=== PATIENT | female | born 1960 | race Caucasian/White ===

== ENCOUNTER 2019-01-15 10:33 | Emergency (ER) | payer OTHER ==
[~2019-01-15] VITALS: Ht 157.5 cm; Wt 79.4 kg
[2019-01-15] MEDS ORDERED: IPRATROPIUM BROMIDE 0.02% 2.5 ML NEB NEB STA (10:59)
[2019-01-15] MEDS ORDERED: ALBUTEROL SULF 0.083% NEB SOLN 3 ML NEB NEB STA (10:59)
[2019-01-15] MEDS ORDERED: DEXAMETHASONE SOD PHOS 10 MG/1 ML VIAL IM ONE (11:00)
[2019-01-15] MEDS ORDERED: ACETAMINOPHEN/CODEINE ELIX 120-12 MG/5 ML UDC NG ONE (11:00)
[2019-01-15] MEDS ORDERED: LEVALBUTEROL HCL SOLN NEBU 1.25 MG/3 ML NEB INH NR (11:15)
[2019-01-15] MEDS ORDERED: BENZONATATE 100 MG CAP PO NR (11:15)
[2019-01-15] MEDS ORDERED: DEXAMETHASONE SOD PHOS 10 MG/1 ML VIAL IM NR (11:15)
[2019-01-15] MEDS ORDERED: LEVALBUTEROL HCL SOLN NEBU 1.25 MG/3 ML NEB INH ONE (11:15)
--- NOTE | 2019-01-15 11:40 | Diagnostic Imaging Report ---
EXAMINATION: CHEST 2 VIEWS INDICATION: Fever, cough, runny nose ^ORDER PLACED BY ^[id number] ^1118 ^Y COMPARISON: None FINDINGS: PA and lateral views TUBES and LINES: None. LUNGS: Diffuse hyperinflation consistent with COPD. Small focus of right upper lobe perihilar airspace opacity, either atelectasis or developing pneumonia. Pulmonary vascular markings are normal. PLEURA: No pleural effusion or pneumothorax. HEART AND MEDIASTINUM: The heart is mildly enlarged. BONES AND SOFT TISSUES: Single median sternotomy wire is intact. No focal osseous lesions. Soft tissues are unremarkable. UPPER ABDOMEN: Unremarkable. IMPRESSION: Right perihilar airspace opacity, either atelectasis or developing pneumonia. Pulmonary hyperinflation consistent with COPD. Signed by: Dr. Natalee Britton MD on 01/15/2019 11:37 AM
--- NOTE | 2019-01-15 11:54 | NUR ---
Andrew CALLED FOR [facility] [place]. FAMILY AT SIDE
== END 2019-01-15 12:55 | disposition home or self-care (01) ==
LOC: ER 10:33
DX: R50.9 Fever, unspecified (principal); R05 Cough; J20.9 Acute bronchitis, unspecified
CPT/HCPCS: 71046; 99284; J1100

== ENCOUNTER 2019-01-25 09:56 | Emergency (ER) | payer OTHER ==
[~2019-01-25] VITALS: Ht 157.5 cm; Wt 79.4 kg
[2019-01-25] MEDS ORDERED: SODIUM CHLORIDE 0.9% 1000ML 1,000 ML IV STA (10:27)
[2019-01-25] MEDS ORDERED: AZITHROMYCIN 500MG/NS 250 ML 250 ML IV STA (10:27)
[2019-01-25] MEDS ORDERED: ALBUTEROL SULF 0.083% NEB SOLN 3 ML NEB NEB STA (10:27)
[2019-01-25] MEDS ORDERED: IPRATROPIUM BROMIDE 0.02% 2.5 ML NEB NEB STA (10:27)
[2019-01-25] MEDS ORDERED: METHYLPREDNISOLONE SOD SUCC 125 MG/2ML VIAL IV STA (10:27)
[2019-01-25] MEDS ORDERED: CEFTRIAXONE SOD 1 GM/NS 50 ML 50 ML IV STA (10:27)
[2019-01-25] MEDS ORDERED: PREDNISONE 20 MG TAB PO ONE (10:30)
[2019-01-25 11:42] LABS: BASOPHILS # (AUTO) 0.1 (0.0-0.1); BASOPHILS % 0.4 % (0.0-1.0); EOSINOPHILS # (AUTO) 0.4 (0.0-0.4); HEMATOCRIT 42.5 % (34.2-44.1); HEMOGLOBIN 14.2 g/dL (12.0-16.0); LYMPHOCYTES # (AUTO) 2.8 (1.0-3.2); LYMPHOCYTES % 19.9 % (18.0-39.1); MEAN CORPUSCULAR HEMOGLOBIN 31.8 pg (28-32); MEAN CORPUSCULAR HGB CONC 33.4 g/dL (31-35); MEAN CORPUSCULAR VOLUME 95.3 fL (81-99); MONOCYTES # (AUTO) 1.8 (0.2-0.8); MONOCYTES % 12.4 % (4.4-11.3); NEUTROPHILS % 63.7 % (38.7-80.0); PLATELET COUNT 356 x10e3/uL (140-360); RED BLOOD COUNT 4.46 x10e6/uL (3.6-5.1); RED CELL DISTRIBUTION WIDTH 12.5 % (11.7-14.4)
[2019-01-25 12:04] LABS: ALANINE AMINOTRANSFERASE 10 IU/L (0-55); ALBUMIN 3.3 g/dL (3.5-5.0); ALBUMIN/GLOBULIN RATIO 0.9 (0.8-2.0); ALKALINE PHOSPHATASE 85 IU/L (40-150); ANION GAP 14.2 mmol/L (8-16); BLOOD UREA NITROGEN 11 mg/dL (7-26); BUN/CREATININE RATIO 14 (6-25); CALCIUM 9.2 mg/dL (8.4-10.2); CARBON DIOXIDE 25 mmol/L (22-29); CHLORIDE 102 mmol/L (98-107); CREATINE KINASE 49 IU/L (29-168); CREATININE, SERUM 0.78 mg/dL (0.57-1.11); EST GLOMERULAR FILTRATION RATE > 60 ML/MIN (60-); GLUCOSE 81 mg/dL (74-118); MAGNESIUM 2.3 MG/DL (1.3-2.1); POTASSIUM 4.2 mmol/L (3.5-5.1); SODIUM 137 mmol/L (136-145)
[2019-01-25 12:16] LABS: COLOR,URINE YELLOW (YELLOW)
[2019-01-25 12:17] LABS: BILIRUBIN,URINE NEGATIVE (NEGATIVE); CLARITY,URINE HAZY (CLEAR); KETONES,URINE NEGATIVE (NEGATIVE); LEUKOCYTE ESTERASE ,URINE NEGATIVE (NEGATIVE); NITRITE,URINE NEGATIVE (NEGATIVE); PROTEIN,URINE DIPSTICK NEGATIVE (NEGATIVE); URINE UROBILINOGEN 0.2 mg/dL (0.2 - 1)
[2019-01-25 12:30] LABS: BACTERIA,URINE MODERATE /HPF; EPITHELIAL CELLS,URINE MODERATE /LPF; RBC,URINE 0-5 /HPF (0-5); WBC,URINE (MAN) 0-5 /HPF (0-5)
[2019-01-25 12:31] LABS: MUCUS,URINE FEW (RARE)
--- NOTE | 2019-01-25 12:53 | Diagnostic Imaging Report ---
EXAM: CHEST 2 VIEWS DATE: 01/25/2019 10:27 AM INDICATION: Bronchitis, shortness of breath COMPARISON: 01/15/2019 FINDINGS: The trachea is midline. There are bibasilar opacities which may reflect atelectasis/scarring. There is no evidence for large focal consolidation, pneumothorax, or significant pleural effusion. The cardiomediastinal silhouette is stable in appearance. No acute osseous abnormalities identified. IMPRESSION: Mildly increased bibasilar opacities suggestive of atelectasis. Signed by: Dr. Gallo Robles MD on 01/25/2019 12:49 PM
[2019-01-25 14:32] VITALS: BP 111/65
--- OUTSIDE RECORDS SUMMARY | 2019-02-04 10:27 | XMS REPORT ---
Author Author [facility] Address Unknown Phone Unavailable Care Team Providers Care Cigarette Roller Name Role Phone MADIE BENITEZ Unavailable Unavailable CHRISTIAN ENRIQUEZ Unavailable Unavailable Payers Payer Name Policy Type Policy Number Effective Date Expiration Date Problems This patient has no known problems. Allergies, Adverse Reactions, Alerts Allergy Name Allergy Type Status Severity Reaction(s) Onset Date Inactive Date Treating Clinician Comments grey BURROWS Active MO 2018-04-01 00:00:00 Medications This patient has no known medications. Results Test Description Test Time Test Comments Text Results Atomic Results Result Comments CHEST 2 VIEWS 2019-01-25 12:48:00 [place] [address] Patient Name: QING DAN MR #: [id number] : 1960 Age/Sex: 58/F Req #: [id number] Adm Physician: Ordered by: EMMANUEL VALDIVIA, MADIE VALDIVIA Report #: [id number] Location: ER Room/Bed: Procedure: [id number] DX/CHEST 2 VIEWS Exam Date: Exam Time: REPORT STATUS: Signed EXAM: CHEST 2 VIEWS DATE: 01/25/2019 10:27 AM INDICATION: B kayleightis, shortness of breath COMPARISON: 01/15/2019 FINDINGS: The trachea is midline. There are bibasilar opacities which may reflect atelectasis/scarring. There is no evidence for large focal consolidation, pneumothorax, or significant pleural effusion. The cardiomediastinal silhouette is stable in appearance. No acute osseous abnormalities identified. IMPRESSION: Mildly increased bibasilar opacities suggestive of atelectasis. Signed by: Dr. Gallo Robles MD on 01/25/2019 12:49 PM Dictated By: GALLO ROBLES MD 124 Transcribed By: AURORA on 01/25/19 124 COPY TO: MADIE BENITEZ CHEST 2 VIEWS 2019-01-15 11:35:00 [place] [address] Patient Name: QING DAN MR #: [id number] : 1960 Age/Sex: 58/F Req #: [id number] Adm Physician: Ordered by: CHRISS DC NP Report #: [id number] Location: ER Room/Bed: Procedure: [id number] DX/CHEST 2 VIEWS Exam Date: 01/15/19 Exam Time: 1118 REPORT STATUS: Signed EXAMINATION: CHEST 2 VIEWS INDICATION: Fever, cough, runny nose ORDER PLACED BY [id number] Y COMPARISON: None FINDINGS: PA and lateral views TUBES and LINES: None. LUNGS: Diffuse hyperinflation consistent with COPD. Small focus of right upper lobe perihilar airspace opacity, either atelectasis or developing pneumonia. Pulmonary vascular markings are normal. PLEURA: No pleural effusion or pneumothorax. HEART AND MEDIASTINUM: The heart is mildly enlarged. BONES AND SOFT TISSUES: Single median sternotomy wire is intact. No focal osseous lesions. Soft tissues are unremarkable. UPPER ABDOMEN: Unremarkable. IMPRESSION: Right perihilar airspace opacity, either atelectasis or developing pneumonia. Pulmonary hyperinflation consistent with COPD. Signed by: Dr. Ade cMlean MD on 01/15/2019 11:37 AM Dictated By: ADE MCLEAN MD 113 Transcribed By: AURORA on 01/15/19 1137 COPY TO: CHRISS DC NP HGBA1C 2018-04-02 21:08:00 GLYCOSYLATED HEMOGLOBIN (HA1C) (test code=GLYHGB) 5.5 % HbA1 4.8-6.0 ESTIMATED AVERAGE GLUCOSE (test code=EAG) 111 MG/DL [id number] 20:40:00* Test Item Value Reference Range Comments TROPONIN-I (test code=TROPI) <0.015 ng/mL 0-0.045 PATIENT REFUSED NOTIFIED UMANG CANNON 04/02/18 0837COMMENTS TO MIXING PLANT OPERATOR : COLLECT 3 HOURS AFTER PREVIOUS SAMPLELIPID PROFILE (CORONARY RISK)2018-04-02 20:40:00* Test Item Value Reference Range Comments TRIGLYCERIDES (test code=TRIG) 73 mg/dL 20-150 CHOLESTEROL (test code=CHOL) 81 mg/dL 0-200 CHOLESTEROL/HDL RATIO (test code=CHOLHDL) 2.0 RATIO 0-4.9 RISK ASSOCIATED WITH CHOL/HDL RATIOS: Risk Male Female1/2 AVERAGE 3.43 3.27AVERAGE 4.97 4.442X AVERAGE 9.55 7.053X AVERAGE 23.39 11.04 REFERENCE VALUE IS RELATED TO RISK LEVELS ASRECOMMENDED BY THE [facility]. HEART, LUNG, AND BLOOD INST. HDL CHOLESTEROL (test code=HDL) 35 mg/dL 40-60 LIPOPROTEIN LDL (test code=LDL) 50 mg/dL 100-129 Reference Interval: mg/dL mmol/L Optimal <100 <2.6Near/above optimal 100-129 2.6- 3.3Borderline High 130-159 3.4-4.1High 160-189 4.1-4.9Very High >=190 >=4.9=========This LDL result is a direct measurement.========= THYROID STIMULATING [id number] 20:40:00* Test Item Value Reference Range Comments THYROID STIMULATING HORMONE (test code=TSH) 0.916 uIU/mL 0.36-3.74 TSH REFERENCE RANGES: EUTHYROID: 0.35 - 4.3 mIU/mL HYPO : > 5.5 mIU/mL HYPER : < 0.35 mIU/mL [id number] 04:58:00* Test Item Value Reference Range Comments TROPONIN-I (test code=TROPI) <0.015 ng/mL 0-0.045 COMMENTS TO MIXING PLANT OPERATOR: COLLECT 3 HOURS AFTER PREVIOUS SAMPLEURINALYSIS [id number] 23:36:00* Test Item Value Reference Range Comments UA COLOR (test code=COLU) YELLOW YELLOW UA APPEARANCE (test code=APPU) SLIGHTLY CLOUDY CLEAR UA GLUCOSE DIPSTICK (test code=DGLUU) NEGATIVE mg/dL NEGATIVE UA BILIRUBIN DIPSTICK (test code=BILU) NEGATIVE mg/dL NEGATIVE UA KETONE DIPSTICK (test code=KETU) 5 (Trace) mg/dL NEGATIVE UA SPECIFIC GRAVITY (test code=SGU) 1.030 1.001-1.035 UA BLOOD DIPSTICK (test code=ANNABELLE) Negative NEGATIVE UA PH DIPSTICK (test code=KASANDRA) 5.0 5.0-8.0 UA PROTEIN DIPSTICK (test code=PROU) Negative mg/dL NEGATIVE UA UROBILINIOGEN DIPSTICK (test code=URO) 0.2 mg/dL 0.0-0.2 UA NITRITE DIPSTICK (test code=ANNETTE) NEGATIVE NEGATIVE UA LEUKOCYTE ESTERASE W REFLEX (test code=LEUUR) NEGATIVE NEGATIVE UA WBC (test code=WBCU) 0-5 #/HPF 0-5 UA RBC (test code=RBCU) 0-2 #/HPF 0-5 UA EPITHELIAL CELLS (test code=EPIU) FEW per HPF FEW UA BACTERIA (test code=BACU) NONE SEEN #/HPF NONE UA HYALINE CAST (test code=HYALU) 0-2 #/LPF 0-5 UA MUCUS (test code=MUCU) MANY #/LPF FEW Urine Source? Clean CatchB-TYPE NATRIURETIC [id number] 20:19:00* Test Item Value Reference Range Comments B-TYPE NATRIURETIC PEPTIDE (test code=BNP) 18.18 pgram/mL 0-100 COMPREHENSIVE METABOLIC [id number] 20:18:00* Test Item Value Reference Range Comments SODIUM (test code=NA) 142 mmol/L 136-145 POTASSIUM (test code=K) 3.8 mmol/L 3.5-5.1 CHLORIDE (test code=CL) 106.0 mmol/L 98-107 CARBON DIOXIDE (test code=CO2) 26.0 mmol/L 21-32 ANION GAP (test code=GAP) 13.8 10-20 GLUCOSE (test code=GLU) 89 mg/dL 74-106 BLOOD UREA NITROGEN (test code=BUN) 10 mg/dL 7-18 GLOMERULAR FILTRATION RATE (test code=GFR) > 60 mL/min >=60 Estimated GFR by using Modified MDRD formula.Chronic kidney disease is defined as either kidney damageor GFR <60 mL/min/1.73 m2 for >3 months. CREATININE (test code=CREAT) 0.70 mg/dL 0.55-1.02 Note change in reference range due to change in reagent. BUN/CREATININE RATIO (test code=BUN/CREA) 14.7 10-20 TOTAL PROTEIN (test code=PROT) 6.8 gram/dL 6.4-8.2 ALBUMIN (test code=ALB) 3.1 g/dL 3.4-5.0 GLOBULIN (test code=GLOB) 3.7 gram/dL 2.7-4.2 ALBUMIN/GLOBULIN RATIO (test code=A/G) 0.8 0.75-1.50 CALCIUM (test code=CA) 8.3 mg/dL 8.5-10.1 BILIRUBIN TOTAL (test code=BILT) 0.10 mg/dL 0.0-1.0 SGOT/AST (test code=AST) 16 IUnit/L 15-37 SGPT/ALT (test code=ALT) 28 IUnit/L 12-78 ALKALINE PHOSPHATASE TOTAL (test code=ALKP) 89 IUnit/L 45-117 Note change in reference range due to change in reagent. [id number] 20:18:00* Test Item Value Reference Range Comments LIPASE (test code=LIP) 205 U/L 73.0-393.0 [id number] 20:18:00* Test Item Value Reference Range Comments CKMB (test code=CKMBT) 1.8 ng/mL 0-6.0 [id number] 20:18:00* Test Item Value Reference Range Comments TROPONIN-I (test code=TROPI) <0.015 ng/mL 0-0.045 HCG SERUM [id number] 20:05:00* Test Item Value Reference Range Comments HCG SERUM QUAL (test code=HCGQL) NEGATIVE NEGATIVE This HCGQL test is NOT applicable for MALE patients.Check with nurse about probable order error.If Tumor Marker Test needed, nurse should order test "HCGTU"(Test #550.39449) COMPREHENSIVE METABOLIC [id number] 20:05:00* Test Item Value Reference Range Comments SODIUM (test code=NA) 142 mmol/L 136-145 POTASSIUM (test code=K) 3.8 mmol/L 3.5-5.1 CHLORIDE (test code=CL) 106.0 mmol/L 98-107 CARBON DIOXIDE (test code=CO2) mmol/L 21-32 ANION GAP (test code=GAP) 10-20 GLUCOSE (test code=GLU) mg/dL 74-106 BLOOD UREA NITROGEN (test code=BUN) mg/dL 7-18 GLOMERULAR FILTRATION RATE (test code=GFR) mL/min >=60 CREATININE (test code=CREAT) mg/dL 0.55-1.02 BUN/CREATININE RATIO (test code=BUN/CREA) 10-20 TOTAL PROTEIN (test code=PROT) gram/dL 6.4-8.2 ALBUMIN (test code=ALB) g/dL 3.4-5.0 GLOBULIN (test code=GLOB) gram/dL 2.7-4.2 ALBUMIN/GLOBULIN RATIO (test code=A/G) 0.75-1.50 CALCIUM (test code=CA) mg/dL 8.5-10.1 BILIRUBIN TOTAL (test code=BILT) mg/dL 0.0-1.0 SGOT/AST (test code=AST) IUnit/L 15-37 SGPT/ALT (test code=ALT) IUnit/L 12-78 ALKALINE PHOSPHATASE TOTAL (test code=ALKP) IUnit/L 45-117 [id number] 20:05:00* Test Item Value Reference Range Comments LIPASE (test code=LIP) U/L 73.0-393.0 [id number] 20:05:00* Test Item Value Reference Range Comments CKMB (test code=CKMBT) ng/mL 0-6.0 [id number] 20:05:00* Test Item Value Reference Range Comments TROPONIN-I (test code=TROPI) ng/mL 0-0.045 CBC W/AUTO [id number] 19:54:00* Test Item Value Reference Range Comments WHITE BLOOD CELL (test code=WBC) K/mm3 4.5-12.5 RED BLOOD CELL (test code=RBC) mill/mm3 3.7-5.2 HEMOGLOBIN (test code=HGB) 13.4 gram/dL 11.5-15.5 HEMATOCRIT (test code=HCT) 41.1 % 36.0-46.0 MEAN CELL VOLUME (test code=MCV) fL 80-98 MEAN CELL HGB (test code=MCH) picogram 27.0-33.0 MEAN CELL HGB CONCETRATION (test code=MCHC) gram/dL 33.0-36.0 RED CELL DISTRIBUTION WIDTH (test code=RDW) % 11.6-16.2 RED CELL DISTRIBUTION WIDTH SD (test code=RDW-SD) fL 37.0-51.0 PLATELET COUNT (test code=PLT) K/mm3 150-450 MEAN PLATELET VOLUME (test code=MPV) fL 6.7-11.0 NEUTROPHIL % (test code=NT%) % 39.0-69.0 IMMATURE GRANULOCYTE % (test code=IG%) % 0.0-5.0 LYMPHOCYTE % (test code=LY%) % 25.0-55.0 MONOCYTE % (test code=MO%) % 0.0-10.0 EOSINOPHIL % (test code=EO%) % 0.0-5.0 BASOPHIL % (test code=BA%) % 0.0-1.0 NEUTROPHIL # (test code=NT#) K/mm3 1.8-7.7 LYMPHOCYTE # (test code=LY#) K/mm3 1.0-5.0 MONOCYTE # (test code=MO#) K/mm3 0-0.8 EOSINOPHIL # (test code=EO#) K/mm3 0.0-0.5 BASOPHIL # (test code=BA#) K/mm3 0.0-0.2 CBC W/AUTO [id number] 19:54:00* Test Item Value Reference Range Comments WHITE BLOOD CELL (test code=WBC) 12.2 K/mm3 4.5-12.5 RED BLOOD CELL (test code=RBC) 4.31 mill/mm3 3.7-5.2 HEMOGLOBIN (test code=HGB) 13.4 gram/dL 11.5-15.5 HEMATOCRIT (test code=HCT) 41.1 % 36.0-46.0 MEAN CELL VOLUME (test code=MCV) 95.4 fL 80-98 MEAN CELL HGB (test code=MCH) 31.1 picogram 27.0-33.0 MEAN CELL HGB CONCETRATION (test code=MCHC) 32.6 gram/dL 33.0-36.0 RED CELL DISTRIBUTION WIDTH (test code=RDW) 12.1 % 11.6-16.2 RED CELL DISTRIBUTION WIDTH SD (test code=RDW-SD) 42.7 fL 37.0-51.0 PLATELET COUNT (test code=PLT) 311 K/mm3 150-450 MEAN PLATELET VOLUME (test code=MPV) 10.0 fL 6.7-11.0 NEUTROPHIL % (test code=NT%) 65.4 % 39.0-69.0 IMMATURE GRANULOCYTE % (test code=IG%) 0.4 % 0.0-5.0 LYMPHOCYTE % (test code=LY%) 20.2 % 25.0-55.0 MONOCYTE % (test code=MO%) 9.8 % 0.0-10.0 EOSINOPHIL % (test code=EO%) 3.9 % 0.0-5.0 BASOPHIL % (test code=BA%) 0.3 % 0.0-1.0 NUCLEATED RBC % (test code=NRBC%) 0.0 % 0-0 NEUTROPHIL # (test code=NT#) 7.97 K/mm3 1.8-7.7 IMMATURE GRANULOCYTE # (test code=IG#) 0.05 x10 3/uL 0-0.03 LYMPHOCYTE # (test code=LY#) 2.46 K/mm3 1.0-5.0 MONOCYTE # (test code=MO#) 1.19 K/mm3 0-0.8 EOSINOPHIL # (test code=EO#) 0.48 K/mm3 0.0-0.5 BASOPHIL # (test code=BA#) 0.04 K/mm3 0.0-0.2 NUCLEATED RBC # (test code=NRBC#) 0.00 K/mm3 0.0-0.1 - CT C-SPINE W/O [id number] 18:33:00 Name: QING MENDOSA [facility] : 1960 Age/S: 57 / F [address] [facility] Unit #: [id number] Loc: [place] [address] Phys: Denisha Lucero MD Acct: [id number] Dis Date: Status: REG ER PHONE #: [phone] Exam Date: 04/01/2018 1801 FAX #: [phone] Reason: fall, syncope EXAMS: CPT CODE: [id number] CT C-SPINE W/O CONTRAST [id number] REASON FOR EXAM: fall, syncope EXAM ORDER DATE: 04/01/2018 5:44 PM Ordering M.D.: Denisha Lucero MD PROCEDURE: - CT C-SPINE W/O CONTRAST FINDINGS: CT images of the cervical spine were obtained without IV contrast at 2.5mm. Reconstructed coronal and sagittal images were also provided. Dose reduction techniques were applied The osseous structures are intact. The central canal is patent. Minimal narrowing of the disc space at C6-7 IMPRESSION: Mild degenerative changes and disc disease at C6-7. No acute findings at 1833 Reported and signed by: Yusuf Mccloud M.D. CC: Denisha Lucero MD Technologist:Johanna rowan RT(R); MARINA Portillo CTDI: DLP: Trnscb Date/Time: 04/01/2018 (183 3) t.SDR.VTL Orig Print D/T: S: 04/01/2018 (1837) C TDI: DLP: PAGE 1 Signed Report - CT HEAD/BRAIN W/O [id number] 18:32:00 Name: QING MENDOSA [facility] : 1960 Age/S: 57 / F [address] [facility] Unit #: [id number] Loc: [place] [address] Phys: Zackary Lucero MD Acct: [id number] Di s Date: Status: REG ER PHONE #: [phone] Exam Date: 04/01/2018 1803 FAX #: [phone] Reason: fall, syncope EXAMS: CPT CODE: [id number] CT HEAD/BRAIN W/O CONT [id number] REASON FOR EXAM: fall, syncope EXAM ORDER DATE: 04/01/2018 5:44 PM Pastora dunn M.D.: Denisha Lucero MD PROCEDURE: - CT HEAD/BRAIN W/O CONT COMPARISON: FINDINGS: CT images of the brain we re obtained without IV contrast. Dose reduction techniques were applied. The brain parenchyma is within normal limits. The mcmillan-white matter delineation is unremarkable. The ventricles, cisterns, and sulci are unremarkable. There is no evidence of hemorrhage, mass, mass effect. There is no evidence of acute or old infarct. The calvarium is intact. IMPRESSION: Unremarkable brain. Moderate scalp contusion in the right parietal area. at 1832 Reported and signed by: Yusuf Mccloud M.D. CC: Denisha Lucero MD Te chnologist:Johanna Nash RT(R); MARINA Portillo CTDI: DLP: Trnscb Date/ Time: 04/01/2018 (1831) Sergio Orig Print D/T: S: 03/19 (1832) CTDI: DLP: PAGE 1 S igned Report - XR CHEST 1 [id number] 18:02:00 FAX: Denisha Trejo [phone] [place]: St: REG Name: QING SOTO [facility] : [birth year] Age/S: 57/F [address] [facility] Unit #: [id number] Loc: [place] [address] Phys: Denisha Lucero MD Acct: [id number] Dis Date: Status: REG ER PHONE #: [phone] Exam Date: 04/01/2018 1800 FAX #: [phone] Reason: fall, syncope EXAMS: CPT CODE: [id number] XR CHEST 1 V 15413 REASON FOR EXAM: fall, syn cope EXAM ORDER DATE: 04/01/2018 5:44 PM Ordering Loraine Ibrahim: Denisha Lucero MD PROCEDURE: - XR CHEST 1 V COMPARISON: FINDINGS: Portable AP frontal view of the chest obta ined at 5:54 PM shows no evidence of effusion. The heart size is minimally enlarged. Pulmonary vasculatures are minimally congested. IMPRESSION: Minimal cardiomegaly, pulmonary venous congestion, and ate lectasis of the left base. at 1802 Reported and signed by: Yusuf Mccloud M.D. CC: Denisha Lucero MD Technologist: ANUPAMA RODARTE RT(R) [facility] Date/Time/By: 04/01/2018 (7149) : By: KalebVTL Orig Print D/T: S: (1384) PAGE 1 Signed Repo rt
--- OUTSIDE RECORDS SUMMARY | 2019-02-04 10:30 | XMS REPORT | Encounter Summary ---
Author Organization Unknown Address [address] [place] [address] Phone [phone] Care Team Providers Care Black Top Machine Operator Name Role Phone Dr. Edinson Barnett 3 [phone] Tony Pablo MD 3 [phone] [facility] [place] 2 [phone] Daily Woody 113 [phone] Reason for Visit runny nose; fever; cough / congestion Instructions 1. Acute bronchitis albuterol sulfate 2.5 mg/3 mL (0.083 %) solution for nebulization amoxicillin 875 mg-potassium clavulanate 125 mg tablet ProAir HFA 90 mcg/actuation aerosol inhaler 2. Cough benzonatate 100 mg capsule 3. Screening mammography mammogram: about this test 4. Immunization 5. Body mass index 30+ - obesity body mass index: care instructions learning about healthy weight Discussion Note: None recorded. Plan of Care Reminders Provider Appointments None recorded. Lab None recorded. Referral None recorded. Procedures None recorded. Surgeries None recorded. Imaging None recorded. Medications Name Start Date albuterol sulfate HFA 90 mcg/actuation aerosol inhaler Inhale 2 puffs every 4-6 hours by inhalation route as needed. benzonatate 100 mg capsule Take 1 capsule 3 times a day by oral route as needed for 10 days. risperidone 4 mg tablet Take 1 tablet every day by oral route. Medications Administered None recorded. Vitals Height Weight BMI Blood Pressure 5 ft 2.5 in 178 lbs 32 kg/m2 110/84 mm[Hg] Lab Results None recorded. Allergies Code Code System Name Reaction Severity Status Onset 2669 RxNorm Codeine Active Problems Name Status Onset Date Source Tobacco User Active 02/04/2016 Bipolar Disorder Active 03/10/2016 Body Mass Index 30+ - Obesity Active 05/12/2016 Schizophrenia Active 05/12/2016 Eczema Active 05/12/2016 Cough Active 07/09/2016 Sinus Bradycardia Active 2018 Procedures Date Name Performed by 07/09/2015 Colonoscopy Information not available Tubal Ligation Information not available Tonsillectomy Information not available Vaccine List Vaccine Type Tdap 02/16/1994 zoster 12/24/20160.65 mL Social History Smoking Status Heavy Tobacco Smoker (1 PPD) Past Encounters 2018 Sinus Bradycardia; Syncope; Immunization; Body Mass Index 30+ - Obesity; Schizophrenia; Tobacco User; Cough Jazmyn Miranda MD: [address] [place] [address], Ph. 03/29/2018 Acute Bronchitis; Cough; Screening Mammography; Immunization; Body Mass Index 30+ - Obesity Jazmyn Miranda MD: [address] [place] [address], Ph. History of Present Illness Note:57yo female presents for evaluation of URI symptoms for past three days since Thu. Has had head congestion, runny nose, dry cough, yellow mucus from nose. No sore throat, shortness of breath. Some wheezing. May have had fever last night, but temp not measured.<div>Has been taking Pratiam-[place] [facility] which was working pretty well on weekend. Started off as allergies. Does not take Zyrtec or Claritin. 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 Not interested in quitting at this time. Cannot take Chantix with current meds.</div> Review of Systems:ROS as noted in the HPI Review of Systems Comprehensive General Adult ROS Reported By: Patient Constitutional: Constitutional: fever Eyes: Eyes: no vision change ENMT: Ears: no difficulty hearing, no ear pain. Nose: no frequent nosebleeds, nose problems, sinus problems. Mouth/Throat: no sore throat Cardiovascular: Cardiovascular: no chest pain Respiratory: Respiratory: no shortness of breath, no coughing up blood, cough, wheezing Gastrointestinal: Gastrointestinal: no abdominal pain, no nausea, no vomiting, no diarrhea Neurologic: Neurologic: no headaches Endocrine: Endocrine: fatigue Allergic/Immunologic: Allergy/Immunologic: runny nose, sinus pressure Physical Exam Upper Respiratory Infection Exam Comprehensive Reported By: Patient Constitutional: General Appearance in no acute distress; frequent cough Skin: Inspection and palpation: no rash Head: Sinuses no tenderness Eyes: Pupils EOM intact, PERRLA, conjunctiva non-injected Ears: Right External auditory canal normal appearance. Left External auditory canal normal appearance. Right Tympanic membrane pearly norton, landmarks clear. Left Tympanic membrane: pearly norton, landmarks clear Nose: Nasal Skin: no lesion. Nasal Mucosa normal, pink and moist Oral Cavity/Mouth: Oral Mucosa: normal, moist. Tonsils: erythema. Posterior pharynx: erythema Lymph Nodes: Cervical no palpable lymph node enlargement, no submandibular adenopathy, no posterior cervical adenopathy, no anterior cervical adenopathy Neck: Neck symmetrical Lungs: Respiratory effort unlabored. Auscultation no rales / crackles, wheezing expiratory diffusely Cardiovascular System: Auscultation regular rate and rhythm, no murmur. Observation/Palpation of peripheral vascular system carotid pulse normal, no edema
--- OUTSIDE RECORDS SUMMARY | 2019-02-04 10:30 | XMS REPORT | Encounter Summary ---
Author Organization Unknown Address [address] [place] [address] Phone [phone] Care Team Providers Care Block Splitter Operator Name Role Phone Dr. Edinson Barnett 3 [phone] Tony Pablo MD 3 [phone] [facility] [place] 2 [phone] Daily Woody DO 113 [phone] Reason for Visit Bilateral ear pain/problem; other - see typed reason Instructions 1. Pneumonia 2. Vaccine refused by patient 3. Body mass index 30+ - obesity body [...] hours by inhalation route as needed. benzonatate 200 mg capsule Take 1 capsule 3 times a day by oral route as needed for 10 days. risperidone 4 mg tablet Take 1 tablet every day by oral route. Medications Administered None recorded. Vitals Height Weight BMI Blood Pressure 5 ft 2.5 in 175.6 lbs 31.6 kg/m2 110/62 mm[Hg] Results Lab Results None recorded. Allergies Code Code System Name Reaction Severity Status Onset 656 RxNorm Codeine Active Problems Name Status Onset [...] Vaccine List Vaccine Type Tdap 02/16/1994 zoster live 12/24/20160.65 mL Social History Tobacco Smoking Status Heavy Tobacco Smoker (1 PPD) Past Encounters 01/25/2019 Pneumonia; Vaccine Refused by Patient; Body Mass Index 30+ - Obesity Darin Arroyo, DO: [address] [place] [address], Ph. History of Present Illness Note:Patient presents to the clinic today with the following concern(s):<div> < div><div>1) EAR PROBLEM</div><div>- presents with pain in both ears. She is concerned for ear infection Went to an urgent care 10d ago and diagnosed with ?bronchitis or ?pna. Was given 10d of ?abx, steroids, and cough medicine. Sx's never resolved but has gradually worsened. Has associated cough, chest congestion, fatigue. Tobacco user.
<div> </div></div></div></div> Review of Systems Comprehensive General Adult ROS Reported By: Patient Constitutional: Constitutional: no fever ENMT: Ears: ear pain. Nose: no sinus problems, nose problems Cardiovascular: Cardiovascular: no chest pain, no shortness of breath when walking Respiratory: Respiratory: cough, wheezing, shortness of breath Gastrointestinal: Gastrointestinal: no abdominal pain, no nausea, no vomiting, no constipation, no diarrhea Musculoskeletal: Musculoskeletal: no muscle aches, no muscle weakness, no arthralgias/joint pain, no swelling in the extremities Physical Exam General Adult Exam (Female) Reported By: Patient Constitutional: General Appearance: healthy-appearing, well-developed. Level of Distress: NAD. Ambulation: ambulating normally Lungs: Respiratory effort: dyspneic. Auscultation: decreased breath sounds, diminished air movement, inspiratory wheezing, expiratory wheezing, wet rales/crackles, rhonchi Cardiovascular: Heart Auscultation: RRR, normal S1, normal S2, no murmurs, no rubs, no gallops Abdomen: Bowel Sounds: normal. Inspection and Palpation: soft, non-distended, no tenderness, no guarding Musculoskeletal:: Motor Strength and Tone: normal motor strength, normal tone. Joints, Bones, and Muscles: normal movement of all extremities. Extremities: no edema
--- OUTSIDE RECORDS SUMMARY | 2019-02-04 10:30 | XMS REPORT | Encounter Summary ---
Author Organization Unknown Address [address] [place] [address] Phone [phone] Care Team Providers Care Jerker Name Role Phone Dr. Edinson Barnett 3 [phone] Tony Pablo MD 3 [phone] [facility] [place] 2 [phone] Daily Woody 113 [phone] Reason for Visit other - see typed reason Instructions 1. Syncope cardiology referral - PLEASE CALL PATIENT AND SCHEUDLE HER AN APPOINTMENT. PLEASE FAX NOTES TO [phone]. electrocardiogram 2. Schizophrenia 3. Sinus bradycardia 4. Immunization 5. Body mass index 30+ - obesity body mass index: care instructions learning about healthy weight 6. Tobacco user stopping smoking: care instructions Discussion Note: None recorded. Plan of Care Reminders Provider Appointments None recorded. Lab None recorded. Referral Cardiology Referral 2018 Kavin Savage Procedures None recorded. Surgeries None recorded. Imaging Electrocardiogram [address] [facility] ([facility] [place] Medications Name Start Date albuterol sulfate HFA [...] BMI Blood Pressure 5 ft 2.5 in 176 lbs 31.7 kg/m2 92/72 mm[Hg] Lab Results None recorded. Allergies Code Code System Name Reaction Severity Status Onset 987 RxNorm Codeine Active Problems Name Status Onset Date Source Tobacco User Active 02/04/2016 Bipolar Disorder Active 03/10/2016 Body Mass Index 30+ - Obesity Active 05/12/2016 Schizophrenia Active 05/12/2016 Eczema Active 05/12/2016 Cough Active 07/09/2016 Sinus Bradycardia Active 2018 Procedures Date Name Performed by 07/09/2015 Colonoscopy Information not available Tubal Ligation Information not available Tonsillectomy Information not available [address] [facility] [place] [address] [place] [address] (Work Place) Vaccine List Vaccine Type Tdap 02/16/1994 zoster 12/24/20160.65 mL Social History Smoking Status Heavy Tobacco Smoker (1 PPD) Past Encounters 2018 Syncope; Schizophrenia; Sinus Bradycardia; Immunization; Body Mass Index 30+ - Obesity; Tobacco User Jazmyn Miranda MD: [address] [place] [phone], Ph. 03/29/2018 Acute Bronchitis; Cough; Screening Mammography; Immunization; Body Mass Index 30+ - Obesity Jazmyn Miranda MD: [address] [place] [phone], Ph. History of Present Illness Note:58yo female presents for evaluation of low blood pressure. Was seen in office on 03/29/18 for bronchitis with freq cough. Was given Augmentin, albuterol for nebulizer & ProAir inhaler. Pt went to work on 04/01/18 and developed coughing spell with dizziness about 5pm. Passed out while standing up at work, woke up on floor, hit head. Per pt, coworkers said she was shaking & amp; incoherent afterwards for a couple minutes. Was taken by ambulance to [facility] 04/01/18. Was evaluated in ER & admitted on 04/[address] scan, ECG, EEG, blood work, carotid US. Determined no stroke or heart attack per pt. Unsure if seizure. Pt was also told she had low pulse (down to 35bpm) and low blood pressure. Was given new medication in hospital of lisinopril 5mg qd - only took one tablet. Was told to follow-up [facility] cardiology.<div>Pt went home on Thursday04/03/18 morning - was tired of bloodwork.</div><div>Has made appt with line fixer, Dr Gonzalez on May 04, 2018.</div><div>Took bp yesterday at work, was 82/60. Drank bottle of water & later in day, bp 100/68.</div>< div>No records from [place] available at this visit.</div><div>Did take albuterol nebulizer that morning, had fertilizer smell at work, used hair mousse/gel several times that day.</div> Review of Systems:ROS as noted in the HPI Review of Systems Comprehensive General Adult ROS Reported By: Patient Constitutional: Constitutional: no fever Eyes: Eyes: no vision change Cardiovascular: Cardiovascular: no chest pain Respiratory: Respiratory: no cough, no wheezing, no shortness of breath Gastrointestinal: Gastrointestinal: no abdominal pain Neurologic: Neurologic: no headaches, loss of consciousness Psychiatric: Psych: no alcohol abuse, no anxiety, no suicidal thoughts, depression Physical Exam General Adult Exam (male) Reported By: Patient Constitutional: General Appearance: healthy-appearing, obese. Level of Distress: NAD Eyes: Lids and Conjunctivae: non-injected, no discharge ENMT: Ears: TMs clear. Nose: nares patent, no sinus tenderness, no nasal discharge. Lips, Teeth, and Gums: no mouth or lip ulcers. Oropharynx: moist mucous membranes, no erythema Neck: Neck: supple, trachea midline. Lymph Nodes: no cervical LAD Lungs: Respiratory effort: no dyspnea. Auscultation: breath sounds normal, no wheezing, no rales/crackles, no rhonchi Cardiovascular: Heart Auscultation: RRR, normal S1, normal S2, no murmurs Neurologic: Gait and Station: normal gait
== END 2019-01-25 14:28 | disposition home or self-care (01) ==
LOC: ER 09:56
DX: J44.1 Chronic obstructive pulmonary disease with (acute) exacerbation (principal); K21.9 Gastro-esophageal reflux disease without esophagitis; F25.9 Schizoaffective disorder, unspecified; Z88.5 Allergy status to narcotic agent
CPT/HCPCS: 36415; 71046; 80053; 81001; 82550; 82553; 83735; 83880; 84484; 85025; 87040; 87400; 93005; 99284; J0456; J0696; J2930; J7030; J7512